=== PATIENT | female | born 1995 | race African-American/Black ===

== ENCOUNTER 2017-11-24 07:47 | Emergency (ER) | payer OTHER ==
[~2017-11-24] VITALS: Ht 152.4 cm; Wt 44.5 kg
[~2017-11-24 07:47] MED LIST: IBUPROFEN 600600 M1 PO; NASONEX17 GM NS
[2017-11-24 08:15] LABS: HEMATOCRIT 39.1 % (37.0-47.0); HEMOGLOBIN 13.2 gm/dL (12.0-15.0); MCH 25.9 pg (26.0-34.0); MCHC 33.7 g/dL (28.0-37.0); MCV 76.9 fL (80.0-100.0); PLATELET COUNT 302 thou/uL (150-400); RBC 5.08 mil/uL (4.20-5.00); RDW 13.6 % (10.5-14.5); WBC 6.4 thou/uL (4.0-11.0)
[2017-11-24 08:16] LABS: URINE BILIRUBIN NEGATIVE (Negative); URINE BLOOD NEGATIVE (Negative); URINE CLARITY CLEAR; URINE COLOR YELLOW; URINE GLUCOSE-RANDOM* NEGATIVE (Negative); URINE KETONES NEGATIVE (Negative); URINE LEUKOCYTES-REFLEX NEGATIVE (Negative); URINE NITRITE-REFLEX NEGATIVE (Negative); URINE PROTEIN (DIPSTICK) NEGATIVE (Negative); URINE UROBILINOGEN 0.2 E.U./dl (0.2-1.0)
[2017-11-24 08:17] LABS: CALCIUM 9.2 mg/dL (8.5-10.1); CREATININE 0.8 mg/dL (0.6-1.0); POTASSIUM 3.8 mmol/L (3.5-5.1)
[2017-11-24 08:23] LABS: ALBUMIN 3.8 g/dL (3.4-5.0); DIRECT BILIRUBIN 0.1 mg/dL (<0.1-0.3); TOTAL BILIRUBIN 0.4 mg/dL (<0.1-1.0); TOTAL PROTEIN 7.1 g/dL (6.4-8.2)
[2017-11-24 08:47] LABS: ABSOLUTE NEUTROPHILS 3.9 thou/uL (1.4-8.2); PLATELET ESTIMATE NORMAL
[2017-11-24] MEDS ORDERED: MIRALAX17 GM PO (09:55)
[2017-11-24 09:59] VITALS: BP 116/71
== END 2017-11-24 10:00 | disposition home or self-care (01) ==
LOC: ER 07:47
PROVIDERS: Emergency Medicine
DX: K59.00 Constipation, unspecified (principal)